=== PATIENT | female | born 1955 | race Caucasian/White ===

== ENCOUNTER 2017-04-07 09:44 | Outpatient (CLI) | payer OTHER | END 2017-04-07 09:45 | disposition EMS.NT | LOC: EMS 09:44 | PROVIDERS: ATTEND Surgery | DX: S60.012A Contusion of left thumb without damage to nail, initial encounter (principal); W01.198A Fall on same level from slipping, tripping and stumbling with subsequent striking against other object, initial encounter; Y92.410 Unspecified street and highway as the place of occurrence of the external cause ==

== ENCOUNTER 2018-03-12 07:25 | Outpatient (CLI) | payer OTHER ==
--- NOTE | 2018-03-15 15:08 | DEXA Report ---
Reason: ENCOUNTER FOR SCREENING FOR OSTEOPOROSIS Procedure Date: 03/12/2018 Accession Number: [id number] / [id number] Procedure: DEX - Dexa Spine and/or Hip CPT Code: FULL RESULT: EXAM: Dexa Spine and/or Hip DATE: 03/12/2018 8:43 AM CLINICAL HISTORY: ENCOUNTER FOR SCREENING FOR OSTEOPOROSIS TECHNIQUE: Dual energy x-ray absorptiometry (DXA) was performed on a [employer] System. Regions measured are the AP Spine, femoral neck, and if needed forearm. COMPARISON: None. In accordance with the International Society for Clinical Densitometry (ISCD) guidelines, data from previous exams may be reanalyzed using current recommendations and techniques. This is done to allow a more accurate basis for comparison with the current study. FINDINGS: The data for the lumbar spine is as follows: BMD (g/cm/cm) T-SCORE Z-SCORE REGION L1 1.078 -0.4 0.0 L2 1.099 -0.8 -0.4 L3 1.116 -0.7 -0.2 L4 1.381 1.5 2.0 TOTAL 1.169 -0.1 0.4 NOTE: All evaluable vertebrae are used for classification The data for the hip is as follows: BMD (g/cm/cm) T-SCORE Z-SCORE REGION Neck 0.761 -2.0 -1.3 TOTAL 0.842 -1.3 -0.9 NOTE: The femoral neck or total proximal femur, whichever is lowest, is used for classification. IMPRESSION: THE WHO CLASSIFICATION BASED ON THE INTERNATIONAL REFERENCE STANDARD IS OSTEOPENIA. THE FRACTURE RISK IS INCREASED. RECOMMENDATION: Patients with diagnosis of osteoporosis or osteopenia should have regular bone mineral density assessment. For those eligible for Medicare, routine testing is allowed once every 2 years. Testing frequency can be increased for patients who have rapidly progressing disease or for those who are receiving medical therapy to restore bone mass. COMMENT: World Health Organization (WHO) definitions for osteoporosis and osteopenia: NORMAL BMD: T-score at -1.0 or higher, fracture risk is low OSTEOPENIA BMD: T-score between -1.0 and -2.5, fracture risk is increased. OSTEOPOROSIS BMD: T-score at -2.5 or lower, fracture risk is high. National Osteoporosis Foundation recommends: 1. Obtain adequate dietary calcium (at least 1200 mg per day) and vitamin D (400-800 international units per day). 2. Participate, as appropriate, in regular weightbearing and muscle-strengthening exercise. 3. Avoid tobacco use and reduce alcohol and caffeine intake. 4. For more detailed information see the website at www.NOF.org.
== END 2018-03-12 07:26 | disposition home or self-care (01) ==
LOC: DI 07:25
PROVIDERS: ATTEND Family Medicine
DX: Z13.820 Encounter for screening for osteoporosis (principal); M85.89 Other specified disorders of bone density and structure, multiple sites
CPT/HCPCS: 77080

== ENCOUNTER 2018-03-12 07:26 | Outpatient (CLI) | payer OTHER | END 2018-03-12 07:27 | disposition home or self-care (01) | LOC: DI 07:26 | PROVIDERS: ATTEND Family Medicine | DX: Z12.31 Encounter for screening mammogram for malignant neoplasm of breast (principal) | CPT/HCPCS: 77067 ==

== ENCOUNTER 2018-03-17 07:38 | Outpatient (CLI) | payer OTHER ==
[2018-03-17 07:54] LABS: BASOPHILS # (AUTO) 0.1 10^3/uL (0.0-0.1); BASOPHILS % (AUTO) 1.4 %; EOSINOPHILS # (AUTO) 0.1 10^3/uL (0.0-0.7); EOSINOPHILS % (AUTO) 1.7 %; LYMPHOCYTES # (AUTO) 2.2 10^3/uL (1.5-3.5); LYMPHOCYTES % (AUTO) 45.9 %; MEAN CORPUSCULAR HGB CONC 35.2 g/dL (32.0-36.0); MEAN CORPUSCULAR VOLUME 90.8 fL (81.0-99.0); MEAN PLATELET VOLUME 8.1 fL (7.9-10.8); MONOCYTES # (AUTO) 0.3 10^3/uL (0.0-1.0); MONOCYTES % (AUTO) 5.5 %; NEUTROPHILS # (AUTO) 2.2 10^3/uL (1.5-6.6); NEUTROPHILS % (AUTO) 45.5 %; PLT - PLATELET COUNT 143 10^3/uL (130-450); RED CELL DISTRIBUTION WIDTH 13.8 % (12.0-15.0); WHITE BLOOD COUNT 4.8 x10^3/uL (4.8-10.8)
[2018-03-17 08:10] LABS: ALBUMIN 3.8 g/dL (3.2-5.5); ALBUMIN/GLOBULIN RATIO 1.5 (1.0-2.2); ALKALINE PHOSPHATASE 83 IU/L (42-121); ALT ALANINE AMINOTRANSFERASE 20 IU/L (10-60); AST ASPARTATE AMINOTRANSFERASE 19 IU/L (10-42); BILIRUBIN,TOTAL 0.6 mg/dL (0.2-1.0); BUN - BLOOD UREA NITROGEN 9 mg/dL (6-20); CALCIUM 8.6 mg/dL (8.5-10.3); CARBON DIOXIDE - CO2 26 mmol/L (21-32); CHLORIDE 108 mmol/L (101-111); CHOL/HDL RATIO 3.8 (<4.4); CHOLESTEROL 172 mg/dL; CREATININE 0.6 mg/dL (0.4-1.0); GFR - MDRD 100 (>89); GLUCOSE 110 mg/dL (70-100); HDL CHOLESTEROL 45 mg/dL; LDL CHOLESTEROL,CALCULATED 106 mg/dL; LDL/HDL RATIO 2.4 (<4.4); SODIUM 141 mmol/L (135-145); TOTAL PROTEIN 6.3 g/dL (6.7-8.2); VLDL CHOLESTEROL 21 mg/dL
[2018-03-17 09:11] LABS: THYROID STIMULATING HORMONE 3.59 uIU/mL (0.34-5.60)
[2018-03-17 09:13] LABS: FREE T4 (FREE THYROXINE) 0.95 ng/dL (0.58-1.64)
== END 2018-03-17 07:39 | disposition home or self-care (01) ==
LOC: LAB 07:38
PROVIDERS: ATTEND Family Medicine
DX: R76.0 Raised antibody titer (principal); Z13.6 Encounter for screening for cardiovascular disorders; Z13.29 Encounter for screening for other suspected endocrine disorder
CPT/HCPCS: 36415; 80053; 80061; 83721; 84439; 84443; 85025

== ENCOUNTER 2019-02-02 | Day surgery (SDC) | payer OTHER | END 2019-02-02 07:47 | disposition home or self-care (01) | PROC: 0DJD8ZZ Inspection of Lower Intestinal Tract, Via Natural or Artificial Opening Endoscopic (ICD-10-PCS; principal; 2019-02-02) | DX: Z12.11 Encounter for screening for malignant neoplasm of colon (principal); K57.30 Diverticulosis of large intestine without perforation or abscess without bleeding; Z86.010 Personal history of colon polyps; Z80.0 Family history of malignant neoplasm of digestive organs | CPT/HCPCS: 45378; J1200; J3010; J7120 ==

== ENCOUNTER 2019-04-09 14:39 | Outpatient (CLI) | payer OTHER ==
--- NOTE | 2019-04-11 01:44 | XRAY Report ---
Reason: OSTEOARTHRITIS BOTH KNEES Procedure Date: 04/09/2019 Accession Number: [id number] / [id number] Procedure: XR - Knee Standing BILAT CPT Code: FULL RESULT: EXAM: BILATERAL KNEE RADIOGRAPHY EXAM DATE: 04/09/2019 03:22 PM CLINICAL HISTORY: Osteoarthritis both knees. COMPARISON: None. TECHNIQUE: 3 views each knee. FINDINGS: Right: Bones: Normal. No fractures or bone lesions. Joints: Severe lateral compartment degenerative changes with joint space loss, osteophytosis, and subchondral sclerosis. Moderate patellofemoral degenerative changes with osteophytosis. No effusion. No subluxations. Soft Tissues: Normal. No soft tissue swelling. Left: Bones: Normal. No fractures or bone lesions. Joints: Moderate lateral compartment degenerative changes with joint space loss and osteophytosis. Mild patellofemoral degenerative changes with osteophytosis. No effusion. No subluxations. Soft Tissues: Normal. No soft tissue swelling. IMPRESSION: Severe right and moderate left degenerative changes in the lateral compartment of the femorotibial joints. Right: Kellgren Daniel Grade 4. Left: Kellgren Daniel Grade 3. Kellgren and Daniel classification of osteoarthritis: Grade 0: no radiographic features of osteoarthritis are present Grade 1: doubtful joint space narrowing (JSN) and possible osteophytic lipping Grade 2: definite osteophytes and possible JSN on anteroposterior weight-bearing radiograph Grade 3: multiple osteophytes, definite JSN, sclerosis, possible bony deformity Grade 4: large osteophytes, marked JSN, severe sclerosis and definite bony deformity RADIA
== END 2019-04-09 14:40 | disposition home or self-care (01) ==
LOC: DI 14:39
PROVIDERS: ATTEND Family Medicine
DX: M17.0 Bilateral primary osteoarthritis of knee (principal)
CPT/HCPCS: 73565

== ENCOUNTER 2019-05-04 07:50 | Outpatient (CLI) | payer OTHER ==
--- NOTE | 2019-05-06 10:03 | Mammography Report ---
Reason: ROUTINE MAMMO Procedure Date: 05/04/2019 Accession Number: [id number] / [id number] Procedure: [facility] - Screening Mammo w/[facility] CPT Code: Final Report FULL RESULT: EXAM: Screening Mammo w/[facility] DATE: 05/04/2019 8:18 AM CLINICAL HISTORY: Routine screening TECHNIQUE: (B) - Bilateral CC and MLO views were obtained. COMPARISON: 03/12/2018 PARENCHYMAL PATTERN: (A) - The breasts demonstrate scattered fibroglandular densities bilaterally. FINDINGS: Left breast: There are no suspicious masses, calcifications, or areas of distortion. Right breast: A 5 mm nodular density in the upper outer breast approximately 9 cm from the nipple may have been previously present but is more apparent on the current study. In the upper inner quadrant a reniform shaped lymph node is stable. A few new benign scattered calcifications have appeared. IMPRESSION: Incomplete examination. BI-RADS category 0. Needs ultrasound right upper outer quadrant. Negative left breast. RECOMMENDATION: (ADDUS) - Targeted ultrasound recommended. Right breast BI-RADS CATEGORY: (0) - Incomplete Examination - need additional evaluation. STANDARD QUALIFYING STATEMENTS: 1. This examination was not reviewed with the aid of Computer-Aided Detection (CAD). 2. A negative or benign imaging report should not preclude biopsy if clinically suspicious findings are present. 3. Dense breasts may obscure an underlying neoplasm. 4. This examination was reviewed with the aid of 3D breast imaging (tomosynthesis).
== END 2019-05-04 07:51 | disposition home or self-care (01) ==
LOC: DI 07:50
PROVIDERS: ATTEND Family Medicine
DX: Z12.31 Encounter for screening mammogram for malignant neoplasm of breast (principal); R92.8 Other abnormal and inconclusive findings on diagnostic imaging of breast
CPT/HCPCS: 77063; 77067

== ENCOUNTER 2019-05-13 08:53 | Outpatient (CLI) | payer OTHER ==
--- NOTE | 2019-05-13 11:17 | Ultrasound Report ---
Reason: ABN MAMMO - SPEC VIEWS RT Procedure Date: 05/13/2019 Accession Number: [id number] / [id number] Procedure: US - Breast Unilateral Limited CPT Code: Final Report FULL RESULT: EXAM: Breast Unilateral Limited DATE: 05/13/2019 10:05 AM CLINICAL HISTORY: ABN MAMMO - SPEC VIEWS RT COMPARISON: Screening mammogram 05/06/2019 and 2017. TECHNIQUE: Targeted ultrasound was performed of the right breast in the area of clinical concern at 11 o'clock and 9 cm distance from the nipple. Color Doppler was employed as appropriate. FINDINGS: There is a wider than tall gently lobulated well-circumscribed internally septated hypoechoic lesion with increased through transmission which measures up to 0.8 cm x 0.4 cm, consistent with mammographic appearance and most compatible with a typically benign cluster of microcysts. No suspicious findings are identified. IMPRESSION: Benign findings RECOMMENDATION: Recommend routine annual Screening mammography unless otherwise clinically indicated. BIRADS CATEGORY 2: Benign findings RADIA
== END 2019-05-13 08:54 | disposition home or self-care (01) ==
LOC: DI 08:53
PROVIDERS: ATTEND Family Medicine
DX: R92.8 Other abnormal and inconclusive findings on diagnostic imaging of breast (principal)
CPT/HCPCS: 76642

== ENCOUNTER 2019-05-28 12:05 | Outpatient (CLI) | payer OTHER ==
--- NOTE | 2019-05-29 14:19 | MRI Report ---
Reason: INSTABILITY RT KNEE, BILAT PRIMARY OSTEOARTHRITIS Procedure Date: 05/28/2019 Accession Number: [id number] / [id number] Procedure: MRI - Knee RT W/O CPT Code: Final Report FULL RESULT: EXAM: RIGHT KNEE MRI WITHOUT CONTRAST EXAM DATE: 05/28/2019 01:03 PM. CLINICAL HISTORY: Instability right knee, bilateral primary osteoarthritis. COMPARISON: KNEE STANDING BILAT 04/09/2019 3:12 PM. TECHNIQUE: Multiplanar, multisequence T1-weighted and fluid-sensitive sequences of the knee without contrast. Other: None. FINDINGS: Bones: Large osteophytes lateral femoral condyle and lateral tibial plateau. Large degenerative cyst posterior aspect lateral tibial plateau 2.1 cm. Extensive subcortical cystic degenerative changes posterior aspect lateral femoral condyle 1.3 cm. Reactive marrow edema posterior aspect lateral femoral condyle. Reactive marrow edema lateral tibial plateau. Large osteophyte posterior aspect distal femur metaphysis. Large osteophytes anterior and posterior proximal tibia. Articular Cartilage: Moderate chondromalacia medial patellar facet. Severe chondromalacia lateral trochlea groove. Severe chondromalacia posterior aspect lateral tibiofemoral compartment. Moderate chondromalacia medial femoral condyle. Medial Meniscus: Complex tear medial meniscus body. Lateral Meniscus: Complex tear lateral meniscus. Cruciate Ligaments: The anterior and posterior cruciate ligaments are intact. Collateral Ligaments: The medial collateral and lateral collateral ligamentous structures are intact. Tendons: The quadriceps, patellar, semimembranosus, and popliteus tendons are unremarkable. Musculature: No edema or fatty atrophy. Other: Small quantity of fluid lateral patellar recess.No popliteal cyst.No loose bodies.The medial and lateral retinacula are intact. Anterior knee subcutaneous edema. IMPRESSION: 1. Severe lateral tibiofemoral compartment osteoarthritis with large osteophytes and extensive large subcortical cystic degenerative changes posterior aspect lateral femoral condyle and posterior aspect lateral tibial plateau. Kellgren Daniel grade 4. 2. Diffuse complex tear lateral meniscus. 3. Complex tear medial meniscus body. RADIA
== END 2019-05-28 12:06 | disposition home or self-care (01) ==
LOC: DI 12:05
PROVIDERS: ATTEND Family Medicine
DX: M25.361 Other instability, right knee (principal); M17.0 Bilateral primary osteoarthritis of knee; M25.761 Osteophyte, right knee; S83.281A Other tear of lateral meniscus, current injury, right knee, initial encounter; S83.241A Other tear of medial meniscus, current injury, right knee, initial encounter